=== PATIENT | male | born 1930 | race Caucasian/White ===

== ENCOUNTER 2017-03-18 16:15 | Emergency (ER) | payer OTHER ==
[~2017-03-18] VITALS: Ht 162.6 cm; Wt 64.4 kg
[~2017-03-18 16:15] MED LIST: COUMADIN4 MG; LEXAPRO5 MG; MICARDIS20 MG; SYNTHROID50 MCG
== END 2017-03-18 18:31 | disposition home or self-care (01) ==
LOC: ER 16:15
DX: Z48.02 Encounter for removal of sutures (principal)

== ENCOUNTER → 2017-03-24 | Emergency (ER) | payer OTHER ==
[~2017-03-24] VITALS: Ht 162.6 cm; Wt 64.9 kg
== END | disposition home or self-care (01) ==
LOC: ER 14:43
DX: Z48.02 Encounter for removal of sutures (principal)